=== PATIENT | female | born 1980 | race Caucasian/White ===

== ENCOUNTER 2018-06-02 17:37 | Inpatient (IN) | payer OTHER, SELFPAY ==
[~2018-06-02 17:37] MED LIST: Iopamidol 370 76% 100 ML VIAL ONE
[2018-06-02] MEDS ORDERED: Fentanyl 100 MCG/2 ML VIAL ONE (18:02)
[2018-06-02] MEDS ORDERED: Ondansetron HCl/PF 4 MG/2 ML Vial ONE (18:02)
[2018-06-02 18:21] LABS: #Lymphocytes 0.4 thou/uL (1.20-3.40); #Monocytes 0.7 thou/uL (0.11-0.59); #Neutrophils 8.6 thou/uL (1.40-6.50); %Basophils 0.3 % (0.0-1.0); %Lymphocytes 4.3 % (21.0-51.0); %Monocytes 6.7 % (0.0-10.0); %Neutrophils 88.6 % (42.0-75.0); Hemoglobin 16.9 g/dL (12.0-16.0); Mean Corpuscular HGB CONC 33.4 g/dL (32.0-36.0); Mean Platelet Volume 7.3 fL (7.4-10.4); Platelet Count 179 thou/uL (130-400); RBC Distribution Width 11.6 % (11.5-14.5); Red Blood Cell (RBC) Count 4.96 mill/uL (4.20-5.40); White Blood Cell (WBC) Count 9.7 thou/uL (4.8-10.8)
[2018-06-02 18:23] LABS: BHCG - Serum Negative (NEGATIVE); Pregs Control Background? CLEAR/WHITE (CLR/WHITE); Pregs Control Bar Appear? YES (CONTROL BAR)
[2018-06-02] MEDS ORDERED: Ketorolac Tromethamine 30 MG/ML VIAL ONE (18:30)
[2018-06-02 18:32] LABS: ALT (SGPT) 88 U/L (8-55); AST (SGOT) 189 U/L (5-34); Albumin 4.4 g/dL (3.5-5.0); Alkaline Phosphatase 87 U/L (40-150); Anion Gap 27 mmol/L (10-20); BUN (Urea Nitrogen) 8 mg/dL (7.0-18.7); Bilirubin, Total 1.2 mg/dL (0.2-1.2); Calc. Creatinine Clearance 0 mL/min (70-130); Calcium 9.6 mg/dL (7.8-10.44); Carbon Dioxide 15 mmol/L (22-29); Chloride 97 mmol/L (98-107); Estimated GFR-MDRD 83; Globulin 3.3 g/dL (2.4-3.5); Glucose 127 mg/dL (70-105); Potassium 4.2 mmol/L (3.5-5.1); Protein, Total 7.7 g/dL (6.0-8.3); Sodium 135 mmol/L (136-145)
[2018-06-02 18:58] LABS: Acetaminophen Less than 6.0 mcg/mL (10.0-30.0); Alcohol Less than 10 mg/dL (Less than 10); Salicylate Less than 8.0 mg/dL (15.0-30.0)
[2018-06-02 19:15] LABS: Base Excess-Venous -8.7 mmol/L (0 (+/- 2.5)); CO2 Tension (PvCO2) 40.3 mmHg (41.0-51.0); Calcium, Ionized 1.06 mmol/L (1.12-1.32); Hemoglobin - Calc 14.8 g/dL (12.0-18.0); O2 Tension (PvO2) 65.2 mmHg (35.0-45.0); Potassium 3.8 mmol/L (3.4-4.7); T. Carbon Dioxide 19.2 mmol/L (1.0-85.0); pH (Venous) 7.258 (7.35-7.45); vO2 Saturation-calc 89.2 % (94-98)
[2018-06-02 19:35] LABS: Lipase 6153 U/L (8-78)
[2018-06-02] MEDS ORDERED: Piperacillin/Tazobactam 3.375 GM VIAL ONE (19:47)
[2018-06-02] MEDS ORDERED: Sodium Chloride 0.9% 100 ML ONE (19:49)
--- NOTE | 2018-06-02 20:02 | CT ---
ABDOMEN AND PELVIC CT WITH CONTRAST: 06/02/18 No prior comparison. CLINICAL HISTORY: Pain and vomiting. FINDINGS: There is low attenuation of hepatic parenchyma which may reflect hepatic steatosis. Correlation with liver function enzymes. The imaged lung bases are clear. No hydronephrosis of either kidney. Spleen i s normal in volume. There is prominent volume of the pancreas with interposed edema as well as peripa ncreatic fluid. There is moderate distention of the gallbladder with a hyperdense gallbladder wall th at may reflect hyperemia. There is intra-abdominal fat stranding and ascites as well as free pelvic f luid. No disseminated free air or portal vein gas. The bowel is not reliably evaluate without enteric contrast. No acute osseous pathology. IMPRESSION: Findings indicate acute pancreatitis. Associated cholecystitis is not excluded. Recommend correlation with laboratory values and appropriate clinical management. Hepatic steatosis. Abdominal and pelvic ascites. POS: [facility]
[2018-06-02 21:00] LABS: Bilirubin Small (Negative); Blood, Urine Negative (Negative); Glucose, Urine (Dipstick) Negative (Negative); Leukocyte Negative (Negative); Nitrite Negative (Negative); Protein, Urine (Dipstick) Negative (Neg-Trace); Urobilinogen 0.2 mg/dL (0.2-1.0)
[2018-06-02 21:01] LABS: Clarity Hazy (Clear); Specific Gravity, Urine 1.005 (1.002-1.036)
[2018-06-02] MEDS ORDERED: Dextrose 5 % And 0.9 % NaCl 1,000 ML IV SCH (21:46)
[2018-06-02] MEDS ORDERED: Ondansetron HCl/PF 4 MG/2 ML Vial IVP PRN (21:46)
[2018-06-02] MEDS ORDERED: Ondansetron ODT 4 MG TAB SL PRN (21:46)
[2018-06-02 21:51] VITALS: BMI 21.5
[2018-06-02] MEDS ORDERED: Acetaminophen 650 MG Suppository PR PRN (22:55)
[2018-06-02] MEDS: Lactated Ringer's 1,000 ML IV SCH (23:10)
[2018-06-02] MEDS: Morphine 4 MG/ML VIAL IV PRN (23:12)
[2018-06-03] MEDS ORDERED: Piperacillin/Tazobactam 3.375 GM in Sodium Chloride 0.9% 100 ML IVPB SCH (02:00)
[2018-06-03 03:58] LABS: #Lymphocytes 0.6 thou/uL (1.20-3.40); #Monocytes 0.5 thou/uL (0.11-0.59); #Neutrophils 5.1 thou/uL (1.40-6.50); %Eosinophils 0.1 % (0.0-10.0); %Lymphocytes 9.4 % (21.0-51.0); %Monocytes 8.8 % (0.0-10.0); %Neutrophils 81.7 % (42.0-75.0); Hemoglobin 13.6 g/dL (12.0-16.0); Mean Corpuscular HGB CONC 33.8 g/dL (32.0-36.0); Mean Corpuscular Hemoglobin 34.8 pg (27.0-31.0); Platelet Count 162 thou/uL (130-400); RBC Distribution Width 12.2 % (11.5-14.5); Red Blood Cell (RBC) Count 3.91 mill/uL (4.20-5.40); White Blood Cell (WBC) Count 6.2 thou/uL (4.8-10.8)
[2018-06-03 04:21] LABS: ALT (SGPT) 55 U/L (8-55); AST (SGOT) 97 U/L (5-34); Albumin 3.3 g/dL (3.5-5.0); Alkaline Phosphatase 64 U/L (40-150); Anion Gap 16 mmol/L (10-20); BUN (Urea Nitrogen) 6 mg/dL (7.0-18.7); Bilirubin, Total 1.3 mg/dL (0.2-1.2); Calc. Creatinine Clearance 94 mL/min (70-130); Calcium 7.9 mg/dL (7.8-10.44); Carbon Dioxide 20 mmol/L (22-29); Cardiac Risk 2.1 (Less than 4.5); Chloride 106 mmol/L (98-107); Cholesterol 195 mg/dl (< 200 Desired); Estimated GFR-MDRD 83; Globulin 2.5 g/dL (2.4-3.5); Glucose 94 mg/dL (70-105); HDL Cholesterol 94 mg/dL (>60 Neg Risk); LDL Cholesterol, Calculated 85 mg/dL; Potassium 3.7 mmol/L (3.5-5.1); Protein, Total 5.8 g/dL (6.0-8.3); Sodium 138 mmol/L (136-145); Triglycerides 82 mg/dL (Less than 150)
[2018-06-03] MEDS: Lactated Ringer's 1,000 ML IV SCH ×4 (05:11→19:33)
[2018-06-03] MEDS: Morphine 4 MG/ML VIAL IV PRN (05:14)
--- NOTE | 2018-06-03 07:14 | HP ---
CHIEF COMPLAINT: Nausea, vomiting, diarrhea. HISTORY OF PRESENT ILLNESS: This is a 37-year-old female with past medical history of GERD, presenti ng with diffuse abdominal pain and vomiting. Per the patient, she has been having vomiting in the pa st 3 days. The patient stated that she vomited numerous times about 3-5 times, nonbloody, bilious vo mitus and it was worsening; therefore, the patient went to go see her primary care doctor, Dr. Danilo sapp and the patient decided to come to the [facility] because she was having severe 9/10 abdomi nal pain that was radiating to her back. Patient denies any headaches, fever, chills, chest pain, pa lpitations. REVIEW OF SYSTEMS: Positive for abdominal pain radiating to the back, vomiting, nausea, diarrhea, ot herwise as documented in the HPI. All other systems were reviewed and are negative. PAST MEDICAL HISTORY: GERD. FAMILY HISTORY: Reviewed and noncontributory to this visit. PAST SURGICAL HISTORY: No documented surgical history. PSYCHIATRIC HISTORY: The patient has anxiety and insomnia. SOCIAL HISTORY: The patient states that she drinks a lot of alcohol. She drinks about 12 bottles of alcohol a day and on weekends, she drinks about 16 bottles of beer. The patient states that alcohol is probably the cause of her pancreatitis. ALLERGIES: No known drug allergies. CURRENT MEDICATIONS: The patient takes sertraline 75 mg a day and Nexium. PHYSICAL EXAMINATION: VITAL SIGNS: Blood pressure 107/66, pulse 70, respiratory rate of 16, temperature of 98.3, O2 sat of 99%. GENERAL: The patient is alert, oriented x3, not in acute distress. HEENT: Normocephalic, atraumatic. Pupils are equal, round, and reactive to light. Extraocular move ments are intact. No scleral icterus. NECK: Supple. Trachea is midline. No JVD. LUNGS: Clear to auscultation bilaterally. No wheezing, no rales, no rhonchi is appreciated. CARDIOVASCULAR: Regular rate and rhythm, no murmurs, no gallops or rubs appreciated. ABDOMEN: Mild tenderness on palpation. Positive bowel sounds in all quadrants. No ecchymosis noted . EXTREMITIES: The patient has 5/5 upper extremity strength, 5/5 lower extremity strength. Good pulse s bilaterally of the upper and lower extremities. No edema noted. NEUROLOGIC: Cranial nerves II through XII grossly intact. No focal neurologic deficits noted. SKIN: Warm, dry, and intact. PSYCHIATRIC: The patient is alert, oriented x3, not in acute distress. Normal affect. IMAGING: CT of the abdomen and pelvis showed pancreatitis. ED COURSE: The patient received sodium chloride, IV fluids, Zosyn, ketorolac, fentanyl. LABORATORY DATA: WBC 9.7, hemoglobin 16.9, hematocrit 50.5, MCV 102.0, RDW is 11.6, pH is 7.2, pCO2 is 40, pO2 is 65.2. Sodium is 135, potassium is 4.2, chloride is 97, carbon dioxide 15, anion gap of 27, BUN of 8, creatinine 0.77, glucose of 127, lactic acid of 1.3. AST is 189, ALT is 88. Lipase i s 6153. Toxicology: Salicylate is less than 8.0. Acetaminophen is less than 6.0. Alcohol is less than 10. ASSESSMENT AND PLAN: A 37-year-old female with no significant past medical history, being admitted f or acute pancreatitis, most likely due to ethanol abuse. Patient admits that she drinks a lot of alc ohol; therefore, this can be contributing to the patient's pancreatitis. At this point, we will cont inue supportive care. We will continue IV fluids, lactated Ringer's at 200 mL per hour. We will get ultrasound of the gallbladder since cholecystitis could not be ruled out. Patient has received Zosy n empirically. 1. History of anxiety and insomnia. Patient is currently stable at this time. 2. Deep venous thrombosis and gastrointestinal prophylaxis. We will do sequential compression devic es and we will give the patient Pepcid.
--- NOTE | 2018-06-03 08:25 | ULT ---
RIGHT UPPER QUADRANT ULTRASOUND: INDICATION: History of abdominal pain, vomiting, pancreatitis; rule out gallstones. FINDINGS: There is severe fatty infiltration of the liver. There is fluid seen within the right upper quadrant of the abdomen. There is fluid surrounding the gallbladder. No intraluminal stone is evident. No gallbladder wall thickening is demonstrated. The common bile duct is dilated measuring up to 9 mm. Pancreatic duct is mildly dilated measuring 3 mm. No intraluminal stone is evident within the visual ized aspects of the common bile duct. The right kidney measured 11.5 x 4 x 4.5 cm. There is prominent edema surrounding the pancreas. IMPRESSION: 1. Findings of acute pancreatitis. 2. No intraluminal gallstones demonstrated. 3. Fluid seen within the right upper quadrant of the abdomen. 4. Dilatation of the common bile duct and pancreatic duct which may be secondary to the prominent in flammation seen involving the pancreas. An MRCP may be helpful to evaluate for any intraluminal dest ructive process. 5. Fatty infiltration of the liver. POS: [facility]
[2018-06-03] MEDS: Famotidine/PF 20 mg/2ml Vial SLOW IVP SCH ×2 (09:19→19:32)
[2018-06-03] MEDS: Acetaminophen 325 MG TAB PO PRN ×2 (10:24→22:37)
[2018-06-03] MEDS ORDERED: Morphine 2 MG/ML SYRINGE SLOW IVP PRN (12:10)
[2018-06-03] MEDS: Multivitamins, Adult 10 ML, Folic Acid 1 MG, Thiamine HCl 100 MG in Dextrose 5 %-0.45 %... IV SCH (12:47)
--- NOTE | 2018-06-03 18:39 | PDOC.PN ---
- Subjective Encounter Start Date: 06/03/18 Encounter Start Time: 09:40 Pt seen for followup re: acute pancreatitis. Denies chest pain, abdo pain better. nausea better. No fevers. - Objective Resuscitation Status: Resuscitation Status FULL:Full Resuscitation Vital Signs & Weight: Vital Signs (12 hours) Temp Pulse Resp BP Pulse Ox 06/03/18 17:19 98 06/03/18 17:12 97.9 F 82 18 130/89 98 06/03/18 15:45 98.3 F 95 27 H 116/84 95 06/03/18 12:00 97.4 F L 82 17 117/81 96 06/03/18 08:00 97 06/03/18 07:33 98.4 F 90 18 125/93 H 97 Weight Admit Weight 133 lb 11.2 oz Weight 133 lb 11.2 oz I&O: 06/02/18 06/03/18 06/04/18 06:59 06:59 06:59 Intake Total 1470 1944 Output Total 550 500 Balance 920 1444 Result Diagrams: 06/03/18 03:28 06/03/18 03:28 Phys Exam - Physical Examination Constitutional: NAD HEENT: moist MMs, sclera anicteric, oral pharynx no lesions, 2+ tonsils Neck: no nodes, no JVD, supple, full ROM Respiratory: no wheezing, no rales, no rhonchi, clear to auscultation bilateral Cardiovascular: RRR, no rub S1, s2 Gastrointestinal: soft, no distention, positive bowel sounds Mild epigastric tenderness, no guarding or rigidity Neurological: moves all 4 limbs Psychiatric: normal affect, A&O x 3 Dx/Plan (1) Acute pancreatitis Code(s): K85.90 - ACUTE PANCREATITIS WITHOUT NECROSIS OR INFECTION, UNSP Status: Acute Comment: clinically better. Continue IV fluids. Recheck lipase. Pt NPO except for ice chips and small sips of water, will reassess tomorrow. (2) Alcohol abuse Code(s): F10.10 - ALCOHOL ABUSE, UNCOMPLICATED Status: Chronic Comment: start ASE protocol, banana bag (3) GERD (gastroesophageal reflux disease) Code(s): K21.9 - GASTRO-ESOPHAGEAL REFLUX DISEASE WITHOUT ESOPHAGITIS Status: Chronic Comment: start PPI. (4) Hyponatremia Code(s): E87.1 - HYPO-OSMOLALITY AND HYPONATREMIA Status: Resolved - Plan * . Review of Systems - Review of Systems Constitutional: negative: fever, chills, sweats, weakness, malaise Respiratory: Hemoptysis. negative: Cough, Shortness of Breath, SOB with Excertion, Pleuritic Pain, Wheezing Cardiovascular: negative: chest pain, palpitations, orthopnea, paroxysmal nocturnal dyspnea, edema, light headedness Gastrointestinal: Nausea, Abdominal Pain. negative: Vomiting, Diarrhea, Constipation, Melena, Hematochezia Genitourinary: negative: Dysuria, Frequency, Incontinence, Hematuria, Retention Skin: negative: Rash, Lesions, Dae, Bruising - Medications/Allergies Allergies/Adverse Reactions: Allergies Allergy/AdvReac Type Severity Reaction Status Date / Time No Known Allergies Allergy Unverified 06/02/18 22:01 Medications: Current Medications Acetaminophen (Tylenol) 650 mg PO Q4H PRN PRN Reason: Headache/Fever/Mild Pain (1-3) Last Admin: 06/03/18 10:24 Dose: 650 mg Acetaminophen (Tylenol) 650 mg [place] Q4H PRN PRN Reason: Headache/Fever/Mild Pain (1-3) Famotidine (Pepcid) 20 mg SLOW IVP Q12HR [facility] Last Admin: 06/03/18 09:19 Dose: 20 mg Lactated Ringer's (Lactated Ringer's) 1,000 mls @ 200 mls/hr IV .Q5H [facility] Last Admin: 06/03/18 18:07 Dose: Not Given Multivitamins 10 ml/ Folic Acid 1 mg/ Thiamine HCl 100 mg / Dextrose/Sodium Chloride 1,011.2 mls @ 100 mls/hr IV 1300 [facility] Last Admin: 06/03/18 12:47 Dose: 1,011.2 mls Morphine Sulfate (Morphine) 2 mg SLOW IVP Q4H PRN PRN Reason: Pain Sodium Chloride (Flush - Normal Saline) 10 ml IVF Q12HR [facility] Last Admin: 06/03/18 09:20 Dose: 10 ml Sodium Chloride (Flush - Normal Saline) 10 ml IVF PRN PRN PRN Reason: Saline Flush
[2018-06-04] MEDS: Lactated Ringer's 1,000 ML IV SCH ×4 (00:07→19:39)
--- NOTE | 2018-06-04 02:11 | CON ---
GASTROENTEROLOGY CONSULTATION DATE OF CONSULTATION: 06/03/2018 CHIEF COMPLAINT: Abdominal pain. HISTORY OF PRESENT ILLNESS: Ms. Cerrato is a 37-year-old woman who woke up early yesterday morning w ith severe burning epigastric and diffuse abdominal pain, back pain, and headache. She ultimately en ded up coming to the emergency room for further care. She vomited at least once. She was given flui ds and pain control and her pain is now much better. She has had couple episodes of loose stools ove r the last couple of days. No blood in stool, no hematemesis. For the last 3 years, she has been dr inking heavily about a 12-pack a day and more likely 16 on the weekends beer. She was found to have acute pancreatitis on presentation. Her liver tests are also elevated. GI was consulted to evaluate this. PAST MEDICAL HISTORY: Depression. PAST SURGICAL HISTORY: Negative. FAMILY HISTORY: Negative for GI malignancy. SOCIAL HISTORY: She drinks 12 pack a day during the weekdays and more on the weekends. She vapes. She used occasional marijuana in the distant past, but no recent drug use. Her unexpect edly a few months ago. ALLERGIES: No known drug allergies. MEDICATIONS: Sertraline. She has taken Nexium for reflux as well. INPATIENT MEDICATIONS: Include pantoprazole, banana bag, lactated Ringer's, morphine, and famotidine . REVIEW OF SYSTEMS: Negative x10 systems reviewed except as stated in history of present illness. PHYSICAL EXAMINATION: VITAL SIGNS: Temperature 98.4, pulse 79, blood pressure 128/84. GENERAL: She is in no acute distress. She is alert and oriented x3. HEENT: Eyes have no scleral icterus. Oropharynx is clear without lesions. NECK: No cervical or supraclavicular lymphadenopathy. LUNGS: Clear to auscultation bilaterally. HEART: Regular rate and rhythm without murmur. ABDOMEN: Has mild tenderness in the epigastric region, but she has no guarding. This is significant ly different from when she presented per her report. Her bowel sounds are present. EXTREMITIES: No lower extremity edema. NEUROLOGIC: Cranial nerves are grossly intact. LABORATORY DATA: White blood cell count 6.2, hemoglobin 13.6, this is down from 16.9 after hydration , MCV 103, platelets 162,000. Creatinine 0.77, bilirubin 1.3, AST 97 down from 181 yesterday, ALT 55 down from 89 yesterday, alkaline phosphatase 64, albumin is 3.3, lipase was 6000 yesterday evening. IMPRESSION: 1. Acute pancreatitis most likely secondary to alcoholic pancreatitis. She does have elevated liver tests and imaging that shows a fatty liver. I would favor that the elevated liver tests are more li bhumi due to alcohol given the AST is twice the ALT and her alkaline phosphatase is normal with minima lly elevated bilirubin. Still given the elevated liver tests and acute pancreatitis, we have to cons ider gallstone pancreatitis is a possibility. Ultrasound of the gallbladder today shows no gallstone s; however, the bile duct was dilated at 9 mm. Again, fatty infiltration of the liver was seen. She did have a CT scan of the abdomen and pelvis yesterday evening, which showed inflammatory changes ar ound the pancreas and fatty liver and some degree of ascites. 2. Mild alcoholic hepatitis. 3. Alcohol abuse. She is on banana bag and will need to be monitored for withdrawal and delirium tr emens. She has no tremors or agitation at this time. RECOMMENDATIONS: 1. MRCP tomorrow. 2. As long as MRCP is negative, then treatment is supportive with fluids and once her pain is improv ed, she can advance to a low-fat diet and ultimately, the primary treatment is alcohol cessation and abstinence.
--- NOTE | 2018-06-04 02:30 | CON ---
DATE OF CONSULTATION: 06/03/2018 HISTORY OF PRESENT ILLNESS: Ms. Cerrato is a wonderfully pleasant 37-year-old female who was admitted with pancreatitis. She has a history of drinking 12 beers a day and on the weekend 16 to 18 or more beers a day. She presented with abdominal pain and vomiting. She is dramatically improved, she says. I was consulted because of her presence in the Intermediate Care Unit. PAST MEDICAL HISTORY: Remarkable for reflux disease. FAMILY HISTORY: Negative for lung disease in early age. SOCIAL HISTORY: She is a nonsmoker. Drinking as above. ALLERGIES: She reports no drug allergies. MEDICATIONS: She is on Zoloft. REVIEW OF SYSTEMS: Ten point review of system completed, otherwise negative. PHYSICAL EXAMINATION: GENERAL: She is in no distress. She is talking in complete sentences. VITAL SIGNS: Blood pressure 130/89, respiratory rate was 18, heart rate was in the 80s. She is in sinus rhythm by monitor. HEENT: Pupils are equal. Sclerae are anicteric. NECK: Supple. LUNGS: Clear. HEART: Regular rhythm. S1 and S2 are normal. ABDOMEN: Minimally tender in her epigastrium. EXTREMITIES: Without clubbing, cyanosis, or edema. LABORATORY DATA: White count 6.2, hemoglobin 13.6, platelets 162,000. Electrolytes were normal. Bilirubin was 1.3, AST is 97, ALT is 55, lipase is 6153. IMPRESSION: Alcoholic pancreatitis. By history, abdominal ultrasound has been done, showing dilation of the common bile duct and pancreatic duct. She also has fatty infiltration of her liver. I had a long discussion about alcohol cessation. Gastroenterology, I am told this has been consulted. She is stable to move out of the Intermediate Care Unit and hopefully this will not be chronic pancreatitis or recurrent pancreatitis. I have explained to her that ongoing drinking will likely lead to chronic pancreatitis and multiple hospitalizations in the future. This is a 70-minute consult, with greater than 50% of the time was spent on unit in coordinating care. MASSIMO
[2018-06-04 05:26] LABS: ALT (SGPT) 40 U/L (8-55); AST (SGOT) 76 U/L (5-34); Albumin 2.9 g/dL (3.5-5.0); Alkaline Phosphatase 62 U/L (40-150); Anion Gap 9 mmol/L (10-20); BUN (Urea Nitrogen) Less than 4 mg/dL (7.0-18.7); Bilirubin, Total 1.2 mg/dL (0.2-1.2); Calc. Creatinine Clearance 134 mL/min (70-130); Calcium 8.3 mg/dL (7.8-10.44); Carbon Dioxide 26 mmol/L (22-29); Chloride 102 mmol/L (98-107); Estimated GFR-MDRD Greater than 90; Globulin 2.1 g/dL (2.4-3.5); Glucose 82 mg/dL (70-105); Sodium 134 mmol/L (136-145)
[2018-06-04 05:29] LABS: Potassium 2.9 mmol/L (3.5-5.1)
[2018-06-04 05:39] LABS: Lipase 2022 U/L (8-78)
[2018-06-04] MEDS ORDERED: Potassium Chloride 20 MEQ TAB PO SCH (05:45)
[2018-06-04 05:51] LABS: #Eosinphils 0.1 thou/uL (0.0-0.7); #Lymphocytes 1.2 thou/uL (1.20-3.40); #Monocytes 0.5 thou/uL (0.11-0.59); #Neutrophils 4.5 thou/uL (1.40-6.50); %Basophils 0.4 % (0.0-1.0); %Lymphocytes 18.7 % (21.0-51.0); %Monocytes 7.9 % (0.0-10.0); Hemoglobin 12.3 g/dL (12.0-16.0); Mean Corpuscular HGB CONC 34.2 g/dL (32.0-36.0); Mean Platelet Volume 7.3 fL (7.4-10.4); Platelet Count 117 thou/uL (130-400); Red Blood Cell (RBC) Count 3.51 mill/uL (4.20-5.40); White Blood Cell (WBC) Count 6.4 thou/uL (4.8-10.8)
[2018-06-04] MEDS: Acetaminophen 325 MG TAB PO PRN ×2 (07:09→15:39)
[2018-06-04] MEDS: Famotidine/PF 20 mg/2ml Vial SLOW IVP SCH (08:40)
[2018-06-04] MEDS ORDERED: Potassium Chloride 40 MEQ in Sodium Chloride 0.9% 250 ML 250 ML IVPB SCH (09:00)
--- NOTE | 2018-06-04 11:42 | MRI ---
MRI ABDOMEN WITHOUT CONTRAST AND MRCP: HISTORY: Acute pancreatitis. Elevated liver function tests. FINDINGS: There is diffuse signal loss in the liver parenchyma on the out of phase imaging compared to the in p hase images consistent with diffuse fatty infiltration. No intra- extrahepatic biliary ductal dilata tion is seen. The common bile duct measures 5 mm in diameter. The pancreatic duct is not abnormally dilated. No gallstones are seen. There is free fluid in the upper abdomen and in the peripancreati c regions (anterior pararenal space). The spleen, adrenal glands, and kidneys are unremarkable. The bone marrow signal is normal. There a re small bilateral pleural effusions. IMPRESSION: 1. Fatty liver. 2. No evidence of cholelithiasis, choledocholithiasis, or abnormal biliary ductal dilatation. 3. Findings are consistent with pancreatitis. 4. Ascites. 5. Small bilateral pleural effusions. POS: [facility]
--- NOTE | 2018-06-04 13:07 | PRG ---
DATE OF SERVICE: 06/04/2018 SUBJECTIVE: Ms. Cerrato is still having epigastric abdominal pain; however, it is much better than w hen she originally presented. She is still requiring pain medicine to control her pain. OBJECTIVE: VITAL SIGNS: Temperature 99.4, blood pressure 137/90, pulse 71. GENERAL: She is in no acute distress. She is alert and oriented x3. HEENT: Eyes have no scleral icterus. Oropharynx is clear, without lesions. NECK: No cervical or supraclavicular lymphadenopathy. LUNGS: Clear to auscultation bilaterally. HEART: Regular rate and rhythm without murmur. ABDOMEN: Soft, minimal tenderness in the epigastric region without guarding. Bowel sounds are prese nt. EXTREMITIES: No lower extremity edema. IMAGING: MRI shows no evidence of a stone in the bile duct. Fatty liver and some ascites are seen. LABORATORY DATA: White blood cell count 6.4, hemoglobin 12.3, platelets 117. Creatinine 0.54, bilir ubin 1.2, AST 76, ALT 40, alkaline phosphatase 62, lipase is down to 2021 from 6153. IMPRESSION: 1. Alcoholic acute pancreatitis. She is clinically improving with IV fluids. There is no evidence of biliary pancreatitis at this point with normal bile ducts and no stones by ultrasound and a normal bile duct by MRI. 2. Mild alcoholic hepatitis. 3. Alcohol abuse. RECOMMENDATIONS: 1. She remains on IV fluids. 2. If her pain improved tomorrow, then she can advance her diet as she tolerates. Goal will be to a dvance to a low-fat diet. 3. Alcohol cessation and monitoring for alcohol withdrawal. 4. I will sign off for now. Please call Dr. Rutherford over the weekend if she needed.
[2018-06-04] MEDS: Multivitamins, Adult 10 ML, Folic Acid 1 MG, Thiamine HCl 100 MG in Dextrose 5 %-0.45 %... IV SCH (14:27)
--- NOTE | 2018-06-04 18:46 | PDOC.PN ---
- Subjective Encounter Start Date: 06/04/18 Encounter Start Time: 09:20 Pt seen for followup re; acute pancreatitis. Feels slightly better. - Objective Resuscitation Status: Resuscitation Status FULL:Full Resuscitation MAR Reviewed: Yes Vital Signs & Weight: Vital Signs (12 hours) Temp Pulse Resp BP BP Pulse Ox 06/04/18 16:00 98.4 F 82 20 149/97 H 149/97 H 97 06/04/18 12:03 99.4 F 71 16 137/90 137/90 98 06/04/18 08:41 142/91 H 98 06/04/18 07:50 98.9 F 79 16 142/91 H 98 Weight Admit Weight 133 lb 11.2 oz Weight 133 lb 11.2 oz I&O: 06/03/18 06/04/18 06/05/18 06:59 06:59 06:59 Intake Total 1470 4264 1460 Output Total 550 1250 1000 Balance 920 3014 460 Result Diagrams: 06/05/18 04:04 06/05/18 04:04 Additional Labs: Labs reviewed by me Phys Exam - Physical Examination Constitutional: NAD HEENT: moist MMs, sclera anicteric, oral pharynx no lesions, 2+ tonsils Neck: no nodes, no JVD, supple, full ROM Respiratory: no wheezing, no rales, no rhonchi, clear to auscultation bilateral Cardiovascular: RRR, no rub S1, S2 Gastrointestinal: soft, non-tender, no distention, positive bowel sounds Neurological: moves all 4 limbs Psychiatric: normal affect, A&O x 3 Dx/Plan (1) Acute pancreatitis Code(s): K85.90 - ACUTE PANCREATITIS WITHOUT NECROSIS OR INFECTION, UNSP Status: Acute Comment: clinically improving. Lipase improving as well. Awaiting MRCP. (2) Alcohol abuse Code(s): F10.10 - ALCOHOL ABUSE, UNCOMPLICATED Status: Chronic Comment: continue ASE protocol, banana bag (3) GERD (gastroesophageal reflux disease) Code(s): K21.9 - GASTRO-ESOPHAGEAL REFLUX DISEASE WITHOUT ESOPHAGITIS Status: Chronic Comment: continue PPI. (4) Hyponatremia Code(s): E87.1 - HYPO-OSMOLALITY AND HYPONATREMIA Status: Resolved - Plan * . Review of Systems - Review of Systems Constitutional: negative: fever, chills, sweats, weakness, malaise Respiratory: negative: Cough, Shortness of Breath, SOB with Excertion, Pleuritic Pain, Wheezing Cardiovascular: negative: chest pain, palpitations, orthopnea, paroxysmal nocturnal dyspnea, edema, light headedness Gastrointestinal: Nausea. negative: Vomiting, Abdominal Pain, Diarrhea, Constipation, Melena, Hematochezia Skin: negative: Rash, Lesions, Dae, Bruising Neurological: negative: Weakness, Numbness, Incoordination, Change in Speech, Confusion, Seizures - Medications/Allergies Allergies/Adverse Reactions: Allergies Allergy/AdvReac Type Severity Reaction Status Date / Time No Known Allergies Allergy Unverified 06/02/18 22:01 Medications: Current Medications Acetaminophen (Tylenol) 650 mg PO Q4H PRN PRN Reason: Headache/Fever/Mild Pain (1-3) Last Admin: 06/04/18 15:39 Dose: 650 mg Acetaminophen (Tylenol) 650 mg [place] Q4H PRN PRN Reason: Headache/Fever/Mild Pain (1-3) Lactated Ringer's (Lactated Ringer's) 1,000 mls @ 80 mls/hr IV .[id number] [facility] Last Admin: 06/04/18 05:03 Dose: 1,000 mls Multivitamins 10 ml/ Folic Acid 1 mg/ Thiamine HCl 100 mg / Dextrose/Sodium Chloride 1,011.2 mls @ 100 mls/hr IV 1300 [facility] Last Admin: 06/04/18 14:27 Dose: 1,011.2 mls Morphine Sulfate (Morphine) 2 mg SLOW IVP Q4H PRN PRN Reason: Pain Pantoprazole Sodium (Protonix) 40 mg PO DAILY [facility] Last Admin: 06/04/18 08:10 Dose: Not Given Sertraline HCl (Zoloft) 75 mg PO DAILY [facility] Last Admin: 06/04/18 08:39 Dose: 75 mg Sodium Chloride (Flush - Normal Saline) 10 ml IVF Q12HR [facility] Last Admin: 06/04/18 08:41 Dose: 10 ml Sodium Chloride (Flush - Normal Saline) 10 ml IVF PRN PRN PRN Reason: Saline Flush
[2018-06-05] MEDS: Acetaminophen 325 MG TAB PO PRN ×3 (00:26→20:07)
[2018-06-05 05:20] LABS: #Eosinphils 0.2 thou/uL (0.0-0.7); #Lymphocytes 1.3 thou/uL (1.20-3.40); #Monocytes 0.5 thou/uL (0.11-0.59); #Neutrophils 4.3 thou/uL (1.40-6.50); %Basophils 0.1 % (0.0-1.0); %Eosinophils 2.9 % (0.0-10.0); %Lymphocytes 20.2 % (21.0-51.0); %Monocytes 7.7 % (0.0-10.0); %Neutrophils 69.1 % (42.0-75.0); Hemoglobin 11.7 g/dL (12.0-16.0); Mean Corpuscular Hemoglobin 34.7 pg (27.0-31.0); Mean Platelet Volume 7.6 fL (7.4-10.4); Platelet Count 120 thou/uL (130-400); RBC Distribution Width 11.8 % (11.5-14.5); Red Blood Cell (RBC) Count 3.36 mill/uL (4.20-5.40); White Blood Cell (WBC) Count 6.2 thou/uL (4.8-10.8)
[2018-06-05 05:25] LABS: ALT (SGPT) 33 U/L (8-55); AST (SGOT) 54 U/L (5-34); Albumin 2.9 g/dL (3.5-5.0); Alkaline Phosphatase 62 U/L (40-150); Anion Gap 11 mmol/L (10-20); BUN (Urea Nitrogen) Less than 4 mg/dL (7.0-18.7); Calc. Creatinine Clearance 142 mL/min (70-130); Calcium 8.4 mg/dL (7.8-10.44); Carbon Dioxide 27 mmol/L (22-29); Chloride 103 mmol/L (98-107); Estimated GFR-MDRD Greater than 90; Globulin 2.2 g/dL (2.4-3.5); Glucose 79 mg/dL (70-105); Potassium 3.1 mmol/L (3.5-5.1); Protein, Total 5.1 g/dL (6.0-8.3); Sodium 138 mmol/L (136-145)
[2018-06-05 05:37] LABS: Lipase 1212 U/L (8-78)
[2018-06-05 05:49] LABS: Bilirubin, Total 1.1 mg/dL (0.2-1.2)
[2018-06-05] MEDS: Potassium Chloride 20 MEQ TAB PO SCH ×2 (10:01→12:36)
[2018-06-05] MEDS: Multivitamins, Adult 10 ML, Folic Acid 1 MG, Thiamine HCl 100 MG in Dextrose 5 %-0.45 %... IV SCH (12:56)
--- NOTE | 2018-06-05 15:51 | PDOC.PN ---
- Subjective Encounter Start Date: 06/05/18 Encounter Start Time: 15:54 Pt seen for followup re: acute pancreatitis. Feels better. No chest pain, abdo pain is better. c/o multiple loose stools. - Objective Resuscitation Status: Resuscitation Status FULL:Full Resuscitation MAR Reviewed: Yes Vital Signs & Weight: Vital Signs (12 hours) Temp Pulse Resp BP BP Pulse Ox 06/05/18 12:07 97.8 F 82 20 146/92 H 99 06/05/18 12:00 146/92 H 06/05/18 08:12 65 142/65 H 06/05/18 08:05 142/65 H 96 06/05/18 07:52 98 F 64 178/94 H 96 06/05/18 04:00 98.6 F 86 16 156/74 H 156/96 H 96 Weight Admit Weight 133 lb 11.2 oz Weight 133 lb 11.2 oz I&O: 06/04/18 06/05/18 06/06/18 06:59 06:59 06:59 Intake Total 4264 2920 Output Total 1250 1000 Balance 3014 1920 Result Diagrams: 06/05/18 04:04 06/05/18 04:04 Additional Labs: Labs reviewed by me Phys Exam - Physical Examination Constitutional: NAD HEENT: moist MMs, sclera anicteric, oral pharynx no lesions, 2+ tonsils Neck: no nodes, no JVD, supple, full ROM Respiratory: no wheezing, no rales, no rhonchi, clear to auscultation bilateral Cardiovascular: RRR, no rub Gastrointestinal: soft, non-tender, no distention, positive bowel sounds Neurological: moves all 4 limbs Psychiatric: normal affect, A&O x 3 Dx/Plan (1) Acute pancreatitis Code(s): K85.90 - ACUTE PANCREATITIS WITHOUT NECROSIS OR INFECTION, UNSP Status: Acute Comment: clinically improving. MRCP unremarkable. Start clear fluid diet, advance to low fat diet as tolerated. (2) Alcohol abuse Code(s): F10.10 - ALCOHOL ABUSE, UNCOMPLICATED Status: Chronic Comment: on ASE protocol, banana bag (3) GERD (gastroesophageal reflux disease) Code(s): K21.9 - GASTRO-ESOPHAGEAL REFLUX DISEASE WITHOUT ESOPHAGITIS Status: Chronic Comment: on PPI. (4) Diarrhea Code(s): R19.7 - DIARRHEA, UNSPECIFIED Status: Acute Comment: send stool studies (C. diff, E. coli, campylobacter) (5) Hyponatremia Code(s): E87.1 - HYPO-OSMOLALITY AND HYPONATREMIA Status: Resolved - Plan * . Review of Systems - Review of Systems Constitutional: negative: fever, chills, sweats, weakness, malaise Respiratory: negative: Cough, Dry, Shortness of Breath, Hemoptysis, SOB with Excertion, Pleuritic Pain, Sputum, Wheezing Cardiovascular: negative: chest pain, palpitations, orthopnea, paroxysmal nocturnal dyspnea, edema, light headedness Gastrointestinal: Diarrhea. negative: Nausea, Vomiting, Abdominal Pain, Constipation, Melena, Hematochezia Genitourinary: negative: Dysuria, Frequency, Incontinence, Hematuria, Retention Skin: negative: Rash, Lesions, Dae, Bruising - Medications/Allergies Allergies/Adverse Reactions: Allergies Allergy/AdvReac Type Severity Reaction Status Date / Time No Known Allergies Allergy Unverified 06/02/18 22:01 Medications: Current Medications Acetaminophen (Tylenol) 650 mg PO Q4H PRN PRN Reason: Headache/Fever/Mild Pain (1-3) Last Admin: 06/05/18 12:35 Dose: 650 mg Acetaminophen (Tylenol) 650 mg [place] Q4H PRN PRN Reason: Headache/Fever/Mild Pain (1-3) Lactated Ringer's (Lactated Ringer's) 1,000 mls @ 80 mls/hr IV .[id number] [facility] [place] Last Admin: 06/04/18 19:39 Dose: 1,000 mls Multivitamins 10 ml/ Folic Acid 1 mg/ Thiamine HCl 100 mg / Dextrose/Sodium Chloride 1,011.2 mls @ 100 mls/hr IV 1300 [facility] [place] Last Admin: 06/05/18 12:56 Dose: 1,011.2 mls Morphine Sulfate (Morphine) 2 mg SLOW IVP Q4H PRN PRN Reason: Pain Pantoprazole Sodium (Protonix) 40 mg PO DAILY [facility] [place] Last Admin: 06/05/18 08:10 Dose: 40 mg Sertraline HCl (Zoloft) 75 mg PO DAILY [facility] [place] Last Admin: 06/05/18 08:10 Dose: 75 mg Sodium Chloride (Flush - Normal Saline) 10 ml IVF Q12HR [facility] [place] Last Admin: 06/05/18 08:11 Dose: Not Given Sodium Chloride (Flush - Normal Saline) 10 ml IVF PRN PRN PRN Reason: Saline Flush
[2018-06-05] MEDS: Lactated Ringer's 1,000 ML IV SCH ×2 (17:48→20:08)
[2018-06-06 04:42] LABS: #Eosinphils 0.2 thou/uL (0.0-0.7); #Lymphocytes 1.1 thou/uL (1.20-3.40); #Monocytes 0.6 thou/uL (0.11-0.59); #Neutrophils 4.5 thou/uL (1.40-6.50); %Basophils 0.6 % (0.0-1.0); %Eosinophils 2.6 % (0.0-10.0); %Lymphocytes 17.2 % (21.0-51.0); %Monocytes 9.3 % (0.0-10.0); %Neutrophils 70.3 % (42.0-75.0); Hemoglobin 11.6 g/dL (12.0-16.0); Mean Corpuscular HGB CONC 33.7 g/dL (32.0-36.0); Mean Corpuscular Hemoglobin 34.3 pg (27.0-31.0); Mean Platelet Volume 7.6 fL (7.4-10.4); Platelet Count 129 thou/uL (130-400); Red Blood Cell (RBC) Count 3.38 mill/uL (4.20-5.40); White Blood Cell (WBC) Count 6.5 thou/uL (4.8-10.8)
[2018-06-06 04:50] LABS: ALT (SGPT) 31 U/L (8-55); AST (SGOT) 37 U/L (5-34); Albumin 3.1 g/dL (3.5-5.0); Alkaline Phosphatase 61 U/L (40-150); Anion Gap 9 mmol/L (10-20); BUN (Urea Nitrogen) Less than 4 mg/dL (7.0-18.7); Bilirubin, Total 0.8 mg/dL (0.2-1.2); Calc. Creatinine Clearance 148 mL/min (70-130); Calcium 8.8 mg/dL (7.8-10.44); Carbon Dioxide 29 mmol/L (22-29); Chloride 102 mmol/L (98-107); Estimated GFR-MDRD Greater than 90; Globulin 2.4 g/dL (2.4-3.5); Glucose 94 mg/dL (70-105); Potassium 3.1 mmol/L (3.5-5.1); Protein, Total 5.5 g/dL (6.0-8.3); Sodium 137 mmol/L (136-145)
[2018-06-06 05:03] LABS: Lipase 1338 U/L (8-78)
[2018-06-06] MEDS: Lactated Ringer's 1,000 ML IV SCH ×2 (05:59→08:51)
[2018-06-06] MEDS: Acetaminophen 325 MG TAB PO PRN ×3 (08:56→23:49)
[2018-06-06] MEDS ORDERED: Loperamide HCl 2 MG CAP PO PRN (09:45)
[2018-06-06] MEDS ORDERED: Loperamide HCl 2 MG CAP PO SCH (10:00)
[2018-06-06] MEDS: Potassium Chloride 20 MEQ TAB PO SCH ×2 (10:03→13:33)
[2018-06-06] MEDS: Multivitamins, Adult 10 ML, Folic Acid 1 MG, Thiamine HCl 100 MG in Dextrose 5 %-0.45 %... IV SCH (13:32)
--- NOTE | 2018-06-06 18:42 | PDOC.PN ---
- Subjective Encounter Start Date: 06/06/18 Encounter Start Time: 18:41 Pt seen for followup re: acute pancreatitis. Feels better. Tolerating diet. Had 4 loose stool today, then received Imodium, no BM after that. - Objective Resuscitation Status: Resuscitation Status FULL:Full Resuscitation MAR Reviewed: Yes Vital Signs & Weight: Vital Signs (12 hours) Temp Pulse Resp BP BP Pulse Ox 06/06/18 16:00 98.3 F 95 20 139/93 H 139/93 H 97 06/06/18 11:39 98.4 F 86 21 H 121/83 100 06/06/18 08:00 139/92 H 06/06/18 07:35 97.7 F 86 20 139/92 H 100 Weight Admit Weight 133 lb 11.2 oz Weight 133 lb 11.2 oz I&O: 06/05/18 06/06/18 06/07/18 06:59 06:59 06:59 Intake Total 2920 4310 2700 Output Total 1000 1000 Balance 1920 3310 2700 Result Diagrams: 06/06/18 04:10 06/06/18 04:10 Additional Labs: Labs reviewed by me Phys Exam - Physical Examination Constitutional: NAD HEENT: moist MMs Neck: supple Respiratory: clear to auscultation bilateral Cardiovascular: RRR Gastrointestinal: soft Neurological: moves all 4 limbs Psychiatric: normal affect Dx/Plan (1) Acute pancreatitis Code(s): K85.90 - ACUTE PANCREATITIS WITHOUT NECROSIS OR INFECTION, UNSP Status: Acute Comment: Lipase slightly higher today, nut pt is clinically better. (2) Alcohol abuse Code(s): F10.10 - ALCOHOL ABUSE, UNCOMPLICATED Status: Chronic Comment: start daily thiamine (3) GERD (gastroesophageal reflux disease) Code(s): K21.9 - GASTRO-ESOPHAGEAL REFLUX DISEASE WITHOUT ESOPHAGITIS Status: Chronic Comment: on PPI. (4) Diarrhea Code(s): R19.7 - DIARRHEA, UNSPECIFIED Status: Resolved Comment: stool studies negative (5) Hyponatremia Code(s): E87.1 - HYPO-OSMOLALITY AND HYPONATREMIA Status: Resolved - Plan * . Review of Systems - Review of Systems Cardiovascular: negative: chest pain, palpitations, orthopnea, paroxysmal nocturnal dyspnea, edema, light headedness Gastrointestinal: negative: Nausea, Vomiting, Abdominal Pain, Diarrhea, Constipation, Melena, Hematochezia - Medications/Allergies Allergies/Adverse Reactions: Allergies Allergy/AdvReac Type Severity Reaction Status Date / Time No Known Allergies Allergy Unverified 06/02/18 22:01 Medications: Current Medications Acetaminophen (Tylenol) 650 mg PO Q4H PRN PRN Reason: Headache/Fever/Mild Pain (1-3) Last Admin: 06/06/18 17:10 Dose: 650 mg Acetaminophen (Tylenol) 650 mg [place] Q4H PRN PRN Reason: Headache/Fever/Mild Pain (1-3) Loperamide HCl (Imodium) 2 mg PO PRN PRN PRN Reason: Diarrhea/Loose Stools Morphine Sulfate (Morphine) 2 mg SLOW IVP Q4H PRN PRN Reason: Pain Pantoprazole Sodium (Protonix) 40 mg PO DAILY [facility] Last Admin: 06/06/18 08:50 Dose: 40 mg Potassium Chloride (K-Dur) 40 meq PO ONE BEE Sertraline HCl (Zoloft) 75 mg PO DAILY [facility] Last Admin: 06/06/18 08:50 Dose: 75 mg Sodium Chloride (Flush - Normal Saline) 10 ml IVF Q12HR [facility] Last Admin: 06/06/18 08:51 Dose: 10 ml Sodium Chloride (Flush - Normal Saline) 10 ml IVF PRN PRN PRN Reason: Saline Flush Thiamine HCl (Thiamine) 100 mg PO DAILY [facility]
[2018-06-06] MEDS ORDERED: Potassium Chloride 20 MEQ TAB PO SCH (18:45)
[2018-06-07 05:37] LABS: #Eosinphils 0.3 thou/uL (0.0-0.7); #Lymphocytes 1.1 thou/uL (1.20-3.40); #Monocytes 0.6 thou/uL (0.11-0.59); #Neutrophils 3.5 thou/uL (1.40-6.50); %Basophils 0.4 % (0.0-1.0); %Lymphocytes 19.9 % (21.0-51.0); %Monocytes 11.1 % (0.0-10.0); %Neutrophils 63.6 % (42.0-75.0); Hemoglobin 11.7 g/dL (12.0-16.0); Mean Corpuscular HGB CONC 33.8 g/dL (32.0-36.0); Mean Corpuscular Hemoglobin 34.9 pg (27.0-31.0); Mean Platelet Volume 7.9 fL (7.4-10.4); Platelet Count 160 thou/uL (130-400); RBC Distribution Width 12.1 % (11.5-14.5); Red Blood Cell (RBC) Count 3.36 mill/uL (4.20-5.40); White Blood Cell (WBC) Count 5.5 thou/uL (4.8-10.8)
[2018-06-07 05:45] LABS: ALT (SGPT) 27 U/L (8-55); AST (SGOT) 27 U/L (5-34); Albumin 3.2 g/dL (3.5-5.0); Alkaline Phosphatase 64 U/L (40-150); Anion Gap 10 mmol/L (10-20); BUN (Urea Nitrogen) Less than 4 mg/dL (7.0-18.7); Bilirubin, Total 0.6 mg/dL (0.2-1.2); Calc. Creatinine Clearance 145 mL/min (70-130); Calcium 8.9 mg/dL (7.8-10.44); Carbon Dioxide 26 mmol/L (22-29); Chloride 110 mmol/L (98-107); Estimated GFR-MDRD Greater than 90; Globulin 2.6 g/dL (2.4-3.5); Glucose 87 mg/dL (70-105); Lipase 775 U/L (8-78); Potassium 3.6 mmol/L (3.5-5.1); Protein, Total 5.8 g/dL (6.0-8.3); Sodium 142 mmol/L (136-145)
[2018-06-07] MEDS: Acetaminophen 325 MG TAB PO PRN (08:45)
[2018-06-07 11:59] VITALS: TEMP 97.8
[2018-06-07 12:42] VITALS: BP 139/94
--- NOTE | 2018-06-07 21:10 | DIS ---
DATE OF ADMISSION: 06/02/2018 DATE OF DISCHARGE: 06/07/2018 PRIMARY CARE PHYSICIAN: Estrada Mcfarlane M.D. DISCHARGE DIAGNOSES: 1. Acute pancreatitis. 2. Alcohol abuse. 3. Hyponatremia. 4. Hypokalemia. CONDITION OF PATIENT ON THE DAY OF DISCHARGE: Stable. I assessed Ms. Cerrato on the day of discharg e. She denies any chest pain or shortness of breath. She denies any abdominal pain. Vital signs ar e stable. S1 and S2 are heard, regular. Lungs are clear to auscultation bilaterally. CONSULTATIONS DURING THIS HOSPITALIZATION: Pulmonary and Critical Care Medicine, Dr. Nabeel goodwin Gastroenterology, Dr. Vance Shaw. HOSPITAL COURSE: Ms. Cerrato is a pleasant 37-year-old lady who was admitted to [facility] on 06/02/2018 for acute pancreatitis in the context of alcohol abuse. Please refer to Dr. Montgomery's history and physical note dated 06/03/2018 for further details. She was seen by Gastroe nterology and Pulmonary and Critical Care Medicine Services. She was initially kept n.p.o. Her lipa se improved. Abdominal ultrasound on 06/03/2018 showed findings of acute pancreatitis, no intraluminal gallstones, fluid seen in the right upper quadrant of the abdomen and dilatation of common bile duct and pancrea tic duct, which may be secondary to prominent inflammation seen involving the pancreas. She also had fatty infiltration of the liver. She went on to have MRI of the abdomen on 06/04/2018, which showed fatty liver, no evidence of cholelithiasis, choledocholithiasis, or abnormal biliary ductal dilatati on. She had findings consistent with pancreatitis, ascites, and small bilateral pleural effusions. She continued to improve clinically. She started tolerating diet. She also had episode of diarrhea, but stool studies did not show any infectious etiology. Diarrhea, resolved with Imodium. She has b een started on thiamine. DISCHARGE MEDICATIONS: Zoloft 75 mg daily, and thiamine 100 mg daily. Many thanks for allowing me to participate in your patient's care. Please feel free to contact me wi th any questions or concerns. On the day of discharge, she has sodium 142, potassium 3.6, creatinine 0.50, total bilirubin 0.6, AST 27, ALT 27 and alkaline phosphatase 64. Albumin is decreased at 3.2. Lipase is 775, down from 6153 at the time of admission. White count is 5500, hemoglobin 11.7, and platelet count is 160,000. DISCHARGE DESTINATION: Home. TOTAL AMOUNT OF TIME SPENT COORDINATING THIS DISCHARGE: 32 minutes.
== END 2018-06-07 12:45 | disposition home or self-care (01) | DRG 439 ==
LOC: SCSER 17:37 → IMCU/EMU 19:29 → T4-A 06-03 16:56
PROVIDERS: ADMIT Internal Medicine; ATTEND Internal Medicine
DX: K85.20 Alcohol induced acute pancreatitis without necrosis or infection (principal); E87.1 Hypo-osmolality and hyponatremia; F10.188 Alcohol abuse with other alcohol-induced disorder; K70.11 Alcoholic hepatitis with ascites; K21.9 Gastro-esophageal reflux disease without esophagitis; E87.6 Hypokalemia; R19.7 Diarrhea, unspecified; F41.9 Anxiety disorder, unspecified; G47.00 Insomnia, unspecified; Z72.0 Tobacco use
CPT/HCPCS: 36415; 74177; 74181; 76705; 80053; 80061; 80307; 82330; 82803; 83605; 83690; 84703; 85025; 87040; 87081; 87324; 87449; 96361; 96365; 96375; A4216; J1170; J1885; J2270; J2405; J2543; J3010; J3411; J3480; J7042; J7050; S0028